=== PATIENT | female | born 1955 | race African-American/Black ===

== ENCOUNTER → 2016-10-11 08:18 | Outpatient (CLI) | payer OTHER | END | disposition home or self-care (01) | LOC: D.US 08:18 | DX: N18.4 Chronic kidney disease, stage 4 (severe) (principal); I10 Essential (primary) hypertension; E11.22 Type 2 diabetes mellitus with diabetic chronic kidney disease; Z68.41 Body mass index [BMI] 40.0-44.9, adult ==

== ENCOUNTER → 2018-02-05 09:56 | Outpatient (CLI) | payer OTHER | END | disposition home or self-care (01) | LOC: D.US 09:56 | DX: I12.9 Hypertensive chronic kidney disease with stage 1 through stage 4 chronic kidney disease, or unspecified chronic kidney disease (principal); N18.4 Chronic kidney disease, stage 4 (severe); D64.9 Anemia, unspecified; N25.81 Secondary hyperparathyroidism of renal origin ==

== ENCOUNTER 2019-10-28 12:43 | Emergency (ER) | payer OTHER ==
[~2019-10-28] VITALS: Ht 167.6 cm; Wt 130.0 kg
[2019-10-28 12:49] VITALS: Ht 167.6 cm; Wt 130.0 kg
[2019-10-28] MEDS ORDERED: TRADJENTA5 MG PO (12:53)
[2019-10-28] MEDS ORDERED: TYLENOL W/CODEI1 TAB PO (12:54)
[2019-10-28] MEDS ORDERED: SODIUM BICARBO650 MG PO (12:54)
[2019-10-28] MEDS ORDERED: ULORIC40 MG PO (12:54)
[2019-10-28] MEDS ORDERED: ROCALTROL0.25 MCG PO (12:55)
[2019-10-28] MEDS ORDERED: COREG25 MG PO (12:56)
[2019-10-28] MEDS ORDERED: HYDROXYZINE HCL50 MG PO (12:57)
[2019-10-28] MEDS ORDERED: NORVASC10 MG PO (12:58)
[2019-10-28] MEDS ORDERED: ISOSORBIDE DINI10 MG PO (12:58)
[2019-10-28] MEDS ORDERED: FUROSEMIDE20 MG PO (12:59)
[2019-10-28] MEDS ORDERED: ZOCOR20 MG PO (12:59)
[2019-10-28] MEDS ORDERED: HUMALOG 30100 UNITS/ SC (13:00)
[2019-10-28] MEDS ORDERED: LOKELMA10 GM PO (13:00)
[2019-10-28] MEDS ORDERED: BASAGLAR K100 UNIT/1 SC (13:01)
[2019-10-28 14:40] LABS: BASOPHILS 0.1 % (0-2); EOSINOPHILS 1.2 % (0-7); HEMOGLOBIN 8.7 g/dL (12-16); IMMATURE GRANULOCYTES 0.3 % (0-5); LYMPHOCYTES 11.7 % (15-50); MCH 27.9 pg (26.0-34.0); MCHC 31.1 g/dL (31.0-37.0); MCV 89.7 fL (80.0-100.0); MEAN PLATELET VOLUME 8.9 fL (7.4-10.4); MONOCYTES 5.8 % (2-11); NEUTROPHILS 80.9 % (40-80); RBC 3.12 10x6/uL (4.00-5.40); RDW 14.6 % (11.5-14.5); WBC 12.2 10x3/uL (4.8-10.8)
[2019-10-28 14:41] LABS: PLATELET COUNT 286 10x3/uL (130-400)
[2019-10-28 14:50] LABS: CALC OSMOLALITY 305 mosm/kg (275-300); CALCIUM 8.5 mg/dL (8.5-10.1); CARBON DIOXIDE 27.2 mmol/L (21.0-32.0); CHLORIDE - SERUM 106 mmol/L (98-107); CREATININE - SERUM 3.2 mg/dL (0.6-1.3); POTASSIUM - SERUM 4.3 mmol/L (3.5-5.1); SODIUM 143 mmol/L (136-145); UREA NITROGEN 65 mg/dL (7-18); eGFR NON AFRICAN AMERICAN 15 mL/min (90-120)
[2019-10-28 15:00] LABS: GLUCOSE 131 mg/dL (74-106)
[2019-10-28 15:16] LABS: ALBUMIN 3.1 g/dL (3.4-5.0); ALKALINE PHOSPHATASE 64 U/L (30-120); ALT (SGPT) 11 U/L (10-68); BILIRUBIN - TOTAL 0.24 mg/dL (0.2-1.3); CREATINE KINASE 331 UL (21-215); PROTEIN - SERUM 7.6 g/dL (6.4-8.2)
[2019-10-28 15:30] LABS: CKMB 1.4 U/L (0.0-3.6)
[2019-10-28] MEDS ORDERED: ULTRAM50 MG PO (17:27)
[2019-10-28 17:31] VITALS: BP 197/94
== END 2019-10-28 18:19 | disposition home or self-care (01) ==
LOC: D.ER 12:43
PROVIDERS: Family Medicine
DX: M79.605 Pain in left leg (principal); W19.XXXA Unspecified fall, initial encounter; Y93.9 Activity, unspecified; Y92.9 Unspecified place or not applicable; I11.0 Hypertensive heart disease with heart failure; I50.9 Heart failure, unspecified; E11.9 Type 2 diabetes mellitus without complications; M25.552 Pain in left hip; Z79.4 Long term (current) use of insulin